=== PATIENT | female | born 1950 | race Caucasian/White ===

== ENCOUNTER 2016-06-23 17:01 | Emergency (ER) | payer BC, OTHER ==
[2016-06-23 17:33] VITALS: BP 133/81
[2016-06-23] MEDS ORDERED: Ipratropium 0.5MG/2.5ML NEB* 0.5 MG/2.5 ML NEB.SOLN INH ONE (17:54)
[2016-06-23] MEDS ORDERED: Albuterol 2.5 MG/3 ML NEB.SOL* (0.083%) INH ONE (17:54)
--- NOTE | 2016-06-23 21:55 | UC ---
Clay Varner Anna, scribed for Carmelina Smith DO on 06/23/16 at 1738 . HPI Febrile Illness - HPI Summary HPI Summary: Patient is a 66 y/o female coming to [facility] [place] presenting with an intermittent cough that began ten days ago. The patient additionally reports sinus pain and pressure, fever, body aches, sore throat, headache, and nausea. The patient describes the cough as productive and producing a yellowish green discharge. She has not noted any blood. Because of her sore throat, it hurts to swallow, but she reports that she is able to swallow sufficiently. The symptoms have made it difficult for her to sleep adequately. She denies vomiting, rashes, dysuria, changes in urination, and chest pain. She has tried Daytime Cold and Flu, Mucinex, and Nyquil with minimal relief. The patient does not smoke. - History of Current Complaint Hx Obtained From: Patient Onset/Duration: Started Days Ago - 10, Still Present, Worse Since - last few days Timing: Constant, Lasting Weeks Initial Severity: Moderate Current Severity: Moderate Alleviating Factors: Nothing Associated Signs and Symptoms: Cough, Myalgia, Nausea, Sore Throat - Additional Pertinent History Primary Care Physician: ANALI - Allergy/Home Medications Allergies/Adverse Reactions: Allergies Allergy/AdvReac Type Severity Reaction Status Date / Time Tetracycline Allergy Rash Verified 06/23/16 17:32 Morphine AdvReac Altered Verified 06/23/16 17:32 Mental Status PMH/Surg Hx/FS Hx/Imm Hx Previously Healthy: Yes Cardiovascular History: Denies: Hx Hypertension GI History: Reports: Hx Gastroesophageal Reflux Disease Musculoskeletal History: Reports: Hx Back Problems Sensory History: Reports: Hx Contacts or Glasses Opthamlomology History: Reports: Hx Contacts or Glasses Neurological History: Reports: Hx Headaches Psychiatric History: Reports: Hx Depression - Cancer History Hx Chemotherapy: No Hx Radiation Therapy: No - Surgical History Surgery Procedure, Year, and Place: 2 C-SECTIONS Hx Anesthesia Reactions: No - Immunization History Date of Tetanus Vaccine: unknown Infectious Disease History: No Infectious Disease History: Denies: Hx Shingles, Traveled Outside the [place] in Last 30 Days - Family History Known Family History: Positive: Cardiac Disease, Hypertension, Other - FHx Breast CA in aunt and grandmother, FHx polymyositis in father - Social History Occupation: Retired Lives: With Family Alcohol Use: Rare Substance Use Type: Reports: None Smoking Status (MU): Never Smoked Tobacco Review of Systems Constitutional: Fever Skin: Negative Eyes: Negative ENT: Sore Throat, Other - Sinus pain and pressure Respiratory: Cough Cardiovascular: Negative Gastrointestinal: Other - nausea Genitourinary: Negative Motor: Negative Neurovascular: Negative Musculoskeletal: Myalgia - body aches Neurological: Headache Psychological: Negative All Other Systems Reviewed And Are Negative: Yes Physical Exam Triage Information Reviewed: Yes Appearance: Well-Appearing, No Pain Distress, Well-Nourished Vital Signs: Initial Vital Signs Temp 98.5 F 06/23/16 17:29 Pulse 93 06/23/16 17:29 Resp 20 06/23/16 17:29 BP 133/81 06/23/16 17:29 Pulse Ox 96 06/23/16 17:29 Vital Signs Reviewed: Yes ENT: Positive: Hearing grossly normal, Pharyngeal erythema, TMs normal, Other: - exquisite sinus tenderness. Negative: Tonsillar swelling, Tonsillar exudate, Trismus, Muffled/hoarse voice Neck: Positive: Supple, Nontender Respiratory: Positive: Wheezing - Diffuse wheezing all duran Cardiovascular: Positive: RRR, No Murmur Musculoskeletal Exam: Normal Neurological: Positive: Alert, Muscle Tone Normal Psychological Exam: Normal Psychological: Positive: Age Appropriate Behavior Skin Exam: Normal - warm, dry, normal color Re-Evaluation - Re-Evaluation First Eval Re-Evaluation Time: 18:40 Change: Improved - Pt reports she is improved following breathing treatment. Only scattered wheezes remain. Course/Dx - Diagnoses Clinic Provider Diagnoses: sinusitis, bronchospasm Discharge - Discharge Plan Condition: Stable Disposition: HOME Prescriptions: Albuterol HFA INHALER* [Ventolin HFA Inhaler*] 2 puff INH Q4H PRN #1 mdi PRN Reason: Sob/Wheezing Amoxicillin/Clavulanate TAB* [Augmentin TAB 875*] 875 mg PO BID #20 tab Benzonatate CAP* [Tessalon CAP*] 100 mg PO TID #30 cap guaiFENesin/CODIEN 100MG-10MG* [Robitussin AC 100Mg-10Mg*] 5 - 10 ml PO BEDTIME PRN #100 udc MDD 10ml PRN Reason: Cough predniSONE TAB* [Deltasone TAB*] 40 mg PO DAILY #10 tab Patient Education Materials: Sinusitis (ED), Bronchospasm (ED) Referrals: Sergio THOMPSON,Cara Prather [Primary Care Provider] - (FOLLOW UP IN 3-5 DAYS IF NOT IMPROVING) Additional Instructions: TRY USING THE NETTI POT IN THE MORNINGS DISCUSSED. YOU MUST ALWAYS USE CLEAN WATER. REMEMBER, POSTURE IS AN IMPORTANT FACTOR IN SINUS DRAINAGE. MOVE YOUR NECK, BREATHE. INHALED BRONCHODILATORS: You have received a prescription for an inhaled bronchodilator -- a medication which stimulates the airways in the lung to dilate. This improves the flow of air in asthma, bronchitis, and emphysema. These medicines have some similarity to adrenaline, and can cause similar side effects: shakiness, racing heart, and a sense of nervousness. These side effects decrease with time. Contact your doctor if these side effects are severe. Do not over-use the medicine. Too-frequent use of the inhaler may make it ineffective. Call your doctor if the inhaler is not controlling your symptoms at the prescribed doses. COUGH-SUPPRESSANT & EXPECTORANT MEDICATION: You are to use a cough medication as needed for relief of symptoms. This medicine is a combination of an expectorant (to make the mucous thinner and more easily "coughed up") and a cough suppressant (to reduce the frequency of coughing). The cough-suppressant medicine is related to narcotics. You may experience mild nausea and sleepiness. Some patients who are very sensitive to narcotics may have stomach pain from this medicine. Taking the medicine with food reduces these side effects. Do not drive or work with machinery until you know how this medicine affects you. The expectorant should have no side effects. Iodine-containing expectorants (such as organidin) should not be taken by persons with active thyroid disease unless approved by your doctor. Call the doctor if you develop shortness of breath, hives, rash, itching, lightheadedness, or severe nausea and vomiting. EXPECTORANT MEDICATION: An expectorant medicine has been prescribed. This type of drug makes mucous thinner, helping the sinuses, nose, and bronchial tubes to remain free of pus and mucous. Expectorants make a cough less severe and more comfortable, and help infected sinuses drain. In general, antihistamines defeat the purpose of the expectorant by making mucous thicker. They should be avoided unless specifically recommended by your physician. TESSALON PERLES: You have received a prescription for Tessalon Perles (benzonatate). This is a non-narcotic medicine for relief of cough. It usually works in about 15- 20 minutes and lasts around four hours. Tessalon Perles should be swallowed. They should not be chewed or dissolved in the mouth (this can produce temporary numbing of the mouth and choking can occur). If you develop any adverse effects such as wheezing, shortness of breath, hives, rash, itching, or lightheadedness, please return at once. CORTICOSTEROID MEDICATION: You have been given a medicine of the cortisone class. This medication is used to control inflammation or allergy. It is usually only given for a short period of time, until the acute process subsides. There are usually no side effects from short-term use of cortisone-like medications. Some persons feel an increased sense of well-being and are not sleepy at bedtime. Long-term use of cortisone medications is best avoided, unless required for a severe condition. If your condition does not remit, or relapses after the course of corticosteroid medication, you should consult your physician. Contact the physician if you develop lightheadedness, black or tarry stools , swelling of the legs, or significant rapid change in weight. AUGMENTIN: Augmentin is a mixture of amoxicillin and clavulanate. Amoxicillin is a member of the penicillin family. It covers the germs likely to cause ear, bronchial, and urinary infections better than plain penicillin. The addition of clavulanate allows it to cover staph infections of the skin, as well as resistant cases of ear and sinus infections. Your physician has chosen Augmentin for you because of the special nature of your situation. Augmentin is best taken with meals. Nausea after taking the medication is rare, but can occur. Diarrhea can occur, particularly in small children. Vaginal yeast infections, and oral thrush in infants are also common. Contact your physician if these problems occur. Allergy to penicillins is common. If you have had an allergic reaction to any drug of the penicillin family, you should never take any other penicillin. Notify your doctor at once if you develop hives, shortness of breath, swelling, or faintness. ANY TIME YOU TAKE AN ANTIBIOTIC, IT IS IMPORTANT TO REPLENISH THE BODY'S BALANCE OF "GOOD" BACTERIA BY EATING HIGH QUALITY CULTURED FOOD SUCH YOGURT, SAURKRAUT OR LAINEY CHI AND/OR TAKING A PROBIOTIC SUPPLEMENT. The documentation as recorded by the graceibClay birmingham Anna accurately reflects the service I personally performed and the decisions made by , Carmelina Smith DO.
== END 2016-06-23 18:56 | disposition home or self-care (01) ==
LOC: UCEAST 17:01
DX: J32.9 Chronic sinusitis, unspecified (principal); J98.01 Acute bronchospasm; Z88.6 Allergy status to analgesic agent; Z88.1 Allergy status to other antibiotic agents
CPT/HCPCS: 99212; G0463; J7644

== ENCOUNTER 2016-08-10 19:34 | Emergency (ER) | payer MEDICARE, BC ==
[2016-08-10 19:55] VITALS: BP 113/72
--- NOTE | 2016-08-10 21:32 | RAD ---
Indication: Fall. Laceration with hematoma to LEFT side of chin. Hit back of head. Comparison: April 08, 2005 CT Technique: Noncontrast CT vertex of skull through foramen magnum. Report: Mild prominence of the cerebral sulci and cerebellar fissures. Unremarkable ventricles and basal cisterns. Negative for campbell matter white matter obscuration, intra or extra-axial hemorrhage, or mass effect. Mild RIGHT posterior parietal scalp hematoma measuring up to 3.8 cm transverse by 0.6 cm in thickness. Negative for calvarial or skull base fracture. Clear visualized paranasal sinuses and mastoid air spaces. IMPRESSION: 1. Mild RIGHT posterior parietal scalp hematoma. 2. Negative for fracture or traumatic brain injury. 3. Mild involutional change.
[2016-08-10] MEDS ORDERED: Lidocaine 1% MPF* 2 ML VIAL ONE (21:35)
--- NOTE | 2016-08-10 21:37 | RAD ---
INDICATION: Fell and struck back of head. Laceration with hematoma to LEFT side of chin. COMPARISON: Head CT of the same date. TECHNIQUE: Multidetector CT base of the skull through mandible without contrast. Multiplanar reformation. REPORT: Artifact from dental amalgam. Mild infiltrative edema/hematoma at the LEFT inferior anterolateral chin. No subcutaneous emphysema evident. The orbital and maxillary sinus margins, zygomatic arches, lamina papyracea, base of the maxilla, pterygoid plates, and nasal bones are intact. The mandible is intact. Normal temporal mandibular joint alignment. Unremarkable orbital contents. Clear paranasal sinuses. Leftward deviation of the nasal septum. IMPRESSION: Mild infiltrative edema/hematoma at the LEFT inferior anterolateral chin. Negative for fracture.
[2016-08-10] MEDS ORDERED: Tetan/Diph/Pertus SYR(Tdap)* 0.5 ML SYR(BOOSTRIX) use SYR IM ONE (21:43)
--- NOTE | 2016-09-03 19:37 | UC ---
Beti Varner Alok, scribed for Carmelina Smith DO on 08/10/16 at 2046 . Minor Trauma HPI - HPI Summary HPI Summary: 66 y/o female presents to the ED following fall from her porch. Pt states that 10 pieces of sheet rock leaning against the wall fell towards her, pushing her backwards and forcing her to land on the floor of the porch. Pt notes she does not know where on her body was impacted but does note pain in her buttocks, and neck, as well as a headache accompanied by light bleeding on the top of her head. Pt states that her headache has been improving with ice and is currently at a 3/10 in severity. Pt denies any LOC following the impact, nor any dizziness , nausea, balance problems, tinnitus, blurred vision, sensitivity to light, confusion, fatigue, moodiness/sadness/irritability following the event. - History of Current Complaint Chief Complaint: UCHeadInjury Stated Complaint: HEAD,CHIN OTHER INJURIES FRM FALL Hx Obtained From: Patient Hx Last Menstrual Period: n/a ?: No Onset/Duration: Sudden Onset, Lasting Hours, Still Present - Better since arrival Onset Of Pain: Post Accident Severity Initially: Moderate Severity Currently: Moderate Pain Intensity: 3 Pain Scale Used: 0-10 Numeric Mechanism Of Injury: Fall From A Standing Position Aggravating Factor(s): Nothing Alleviating Factor(s): Ice Associated Signs And Symptoms: Positive: Ecchymosis - Buttocks, Other: - Headache. Negative: Loss Of Consciousness - Allergies/Home Medications Allergies/Adverse Reactions: Allergies Allergy/AdvReac Type Severity Reaction Status Date / Time Tetracycline Allergy Rash Verified 08/10/16 19:55 Morphine AdvReac Altered Verified 08/10/16 19:55 Mental Status PMH/Surg Hx/FS Hx/Imm Hx Cardiovascular History Of: Denies: Hypertension GI/ History Of: Reports: Gastroesophageal Reflux Psychological History Of: Reports: Depression Cancer History Of: Denies: Breast Cancer - Surgical History Surgical History: Yes Surgery Procedure, Year, and Place: 2 C-SECTIONS back surgery 2016 for herniated disc. - Family History Known Family History: Positive: Cardiac Disease, Hypertension, Other - FHx Breast CA in aunt and grandmother, FHx polymyositis in father - Social History Occupation: Retired Lives: With Family - Domestic Partner (Male) Alcohol Use: Rare Substance Use Type: None Smoking Status (MU): Never Smoked Tobacco - Immunization History Most Recent Influenza Vaccination: fall 2013 Most Recent Tetanus Shot: more than 10 yrs Most Recent Pneumonia Vaccination: never Review of Systems Constitutional: Negative Skin: Bruising Eyes: Negative ENT: Negative Respiratory: Negative Cardiovascular: Negative Gastrointestinal: Negative Genitourinary: Negative Motor: Negative Neurovascular: Negative Musculoskeletal: Negative Neurological: Negative Psychological: Negative All Other Systems Reviewed And Are Negative: Yes Physical Exam Triage Information Reviewed: Yes Appearance: Well-Appearing, No Pain Distress, Well-Nourished Vital Signs: Initial Vital Signs Temp 98.6 F 08/10/16 19:48 Pulse 85 08/10/16 19:48 Resp 20 08/10/16 19:48 BP 113/72 08/10/16 19:48 Pulse Ox 90 08/10/16 19:48 Vital Signs Reviewed: Yes Eyes: Positive: Conjunctiva Clear. Negative: Discharge ENT: Positive: Hearing grossly normal. Negative: Muffled/hoarse voice Neck exam: Normal Neck: Positive: Supple Respiratory: Positive: Lungs clear, Normal breath sounds, No respiratory distress, No accessory muscle use Cardiovascular: Positive: RRR, No Murmur Musculoskeletal Exam: Normal Neurological: Positive: Other: - A&Ox3, CN II-XII INTACT, SENSORY MOTOR INTACT, REFLEXES INTACT, NO CEREBELLAR SIGNS, FACIAL SYMMETRY, NEGATIVE ROMBERG, NORMAL GAIT Psychological Exam: Normal Psychological: Positive: Age Appropriate Behavior Skin Exam: Normal Skin: Positive: Other - abraision on scalp. no lac appreciated. Warm, dry, normal color Diagnostics - Radiology Brain CT Xray Interpretation: Positive (See Comments) - IMPRESSION: 1. Mild RIGHT posterior parietal scalp hematoma. 2. Negative for fracture or traumatic brain injury. 3. Mild involutional change. Radiology Interpretation Completed By: Radiologist Maxillofacial CT Xray Interpretation: Positive (See Comments) - IMPRESSION: Mild infiltrative edema/hematoma at the LEFT inferior anterolateral chin. Negative for fracture. Radiology Interpretation Completed By: Radiologist Minor Trauma Course/Dx - Differential Dx/Diagnosis Differential Diagnosis/HQI/PQRI: Abrasion(s), Contusion(s), Fracture, Hematoma(s ), Laceration(s), Sprain Provider Diagnoses: concussion, abraision, hematoma Discharge - Discharge Plan Condition: Stable Disposition: HOME Patient Education Materials: Concussion (ED), Abrasion (ED), Hematoma (ED) Referrals: Sergio DORSEYC,Cara Prather [Primary Care Provider] - (follow up in 4-5 days) The documentation as recorded by the Beti guan Alok accurately reflects the service I personally performed and the decisions made by , Carmelina Smith DO.
== END 2016-08-10 22:08 | disposition home or self-care (01) ==
LOC: UCEAST 19:34
DX: S06.0X0A Concussion without loss of consciousness, initial encounter (principal); S00.01XA Abrasion of scalp, initial encounter; S00.03XA Contusion of scalp, initial encounter; S30.0XXA Contusion of lower back and pelvis, initial encounter; S00.83XA Contusion of other part of head, initial encounter; W17.89XA Other fall from one level to another, initial encounter; Y93.9 Activity, unspecified; Y92.9 Unspecified place or not applicable; Z23 Encounter for immunization; Z88.1 Allergy status to other antibiotic agents; Z88.2 Allergy status to sulfonamides
CPT/HCPCS: 70450; 70486; 90471; 90715; 99211; G0463

== ENCOUNTER 2017-01-05 12:55 | Emergency (ER) | payer MEDICARE ==
[2017-01-05 13:06] VITALS: BP 132/68
--- NOTE | 2017-01-05 20:22 | UC ---
Nehemias Varner Rebecca, scribed for Irene Perry MD on 01/05/17 at 1441 . Skin Complaint HPI - HPI Summary HPI Summary: Pt is a 66 y/o F who presents to [facility] c/o bilateral erythematous rash to the upper extremities. Sx began 10 days ago and have been constant and worsening since onset. Rash is characterized as pruritic and "burning" with associated pain ranked 3/10. Sx aggravated and alleviated by nothing, unchanged by hydrocortisone and Prednisone 10 mg BID for 3 days - left over from poison libia last year. Additionally notes RUE swelling. Denies rash on the neck, fever, cough, chills. Reports she was cutting down a vine from a tree recently. PCP is Dr. Pina. Tetanus UTD. - History of Current Complaint Chief Complaint: UCSkin Time Seen by Provider: 01/05/17 14:36 Stated Complaint: RASH Hx Obtained From: Patient Hx Last Menstrual Period: n/a Onset/Duration: Lasting Days - 10 days, Still Present Timing: Constant Current Severity: Mild Pain Intensity: 3 Pain Scale Used: 0-10 Numeric Location: Other - Bilateral UE Character: Redness Aggravating: Nothing Alleviating: Nothing - Allergy/Home Medications Allergies/Adverse Reactions: Allergies Allergy/AdvReac Type Severity Reaction Status Date / Time Tetracycline Allergy Rash Verified 12/06/16 12:38 Morphine AdvReac Altered Verified 12/06/16 12:38 Mental Status Review of Systems Constitutional: Negative Skin: Rash - Erythematous pruritic bilateral UE; Denies rash on the neck, Other - RUE swelling Eyes: Negative ENT: Negative Respiratory: Negative Cardiovascular: Negative Gastrointestinal: Negative Genitourinary: Negative Motor: Negative Neurovascular: Negative Musculoskeletal: Negative Neurological: Negative Psychological: Negative All Other Systems Reviewed And Are Negative: Yes PMH/Surg Hx/FS Hx/Imm Hx Previously Healthy: No - Hx chronic back pain - Surgical History Surgical History: Yes Surgery Procedure, Year, and Place: 2 C-SECTIONS back surgery 2016 for herniated disc. - Family History Known Family History: Positive: Cardiac Disease, Hypertension, Other - FHx Breast CA in aunt and grandmother, FHx polymyositis in father - Social History Alcohol Use: None Substance Use Type: None Smoking Status (MU): Never Smoked Tobacco - Immunization History Most Recent Influenza Vaccination: fall 2013 Most Recent Tetanus Shot: more than 10 yrs Most Recent Pneumonia Vaccination: never Physical Exam Triage Information Reviewed: Yes Vital Signs: Initial Vital Signs Temp 100 F 01/05/17 13:03 Pulse 84 01/05/17 13:03 Resp 20 01/05/17 13:03 BP 132/68 01/05/17 13:03 Pulse Ox 100 01/05/17 13:03 Vital Signs Reviewed: Yes Skin Exam: Other - Bilat forearms with + red, raised patches c/w contact dermatitis. + red, warm to touch. Distal pulses (R/U) 2+ equal. Distal sensation present LT. Moves hand bilat. Straightens elbow ok. PT reports similar rash on legs, to lesser degree. - Additional Comments Appearance: Well-Nourished Eye Exam: Normal ENT Exam: Normal Respiratory Exam: Normal, no dyspnea, no tachypnea, normal respiratory rate Cardiovascular Exam: Normal Cardiovascular: Heart rate regular, good general skin color, good capillary refill Musculoskeletal Exam: Normal Musculoskeletal: Strength Intact Neurological Exam: Normal: nonfocal, grossly intact Psychological Exam: Normal: conversing easily and appropriately Skin Exam: Course/Dx - Course Course Of Treatment: S/sx c/w contact dermatitis. Possibly additional secondary cellulitis. Rx -prednisone taper, d/w pt. Rx - cephalexin, d/w pt. See AVS instr. Questions answered to the best of my ability. Diff dx includes (below). Considered phytophotodermatitis, but more c/w contact such as poison oak. Tet utd per pt. - Diagnoses Provider Diagnoses: Contact dermatitis. Cellulitis Discharge - Discharge Plan Condition: Stable Disposition: HOME Prescriptions: Cephalexin CAP* [Keflex 500 CAP*] 500 mg PO TID #15 cap predniSONE TAB* [Deltasone TAB*] 10 mg PO DAILY #20 tab Patient Education Materials: Antihistamine (By mouth), Contact Dermatitis (ED) , Cellulitis (ED) Referrals: Hanane Pina MD [Primary Care Provider] - Additional Instructions: Avoid strong soaps, rubbing alcohol, hydrogen peroxide and after-shave. Avoid hot showers, beer and red wine. The documentation as recorded by the Nehemias guan Rebecca accurately reflects the service I personally performed and the decisions made by me, Irene Perry MD.
== END 2017-01-05 15:00 | disposition home or self-care (01) ==
LOC: UCEAST 12:55
DX: L25.9 Unspecified contact dermatitis, unspecified cause (principal); L03.114 Cellulitis of left upper limb; L03.113 Cellulitis of right upper limb
CPT/HCPCS: 99211; G0463

== ENCOUNTER 2017-10-14 17:11 | Emergency (ER) | payer MEDICARE, OTHER ==
[2017-10-14 17:19] VITALS: BP 112/59
[2017-10-14] MEDS ORDERED: DOXYcycline CAP(*) 100 MG PO ONE (17:29)
--- NOTE | 2017-10-14 17:37 | UC ---
Bite Injury/Animal HPI - HPI Summary HPI Summary: 67 yo female with c/o tick bite. She removed a tick from the R side of her abdomen yesterday. Unsure how long it had been attached. Not engorged. No recent fevers, ZAFAR, n/v. - History of Current Complaint Chief Complaint: UCSkin Stated Complaint: TICK BITE Hx Last Menstrual Period: n/a Pain Intensity: 2 - Allergies/Home Medications Allergies/Adverse Reactions: Allergies Allergy/AdvReac Type Severity Reaction Status Date / Time morphine Allergy Altered Verified 10/14/17 17:19 Mental Status tetracycline Allergy Rash Verified 10/14/17 17:19 PMH/Surg Hx/FS Hx/Imm Hx Previously Healthy: Yes - Surgical History Surgical History: Yes Surgery Procedure, Year, and Place: 2 C-SECTIONS back surgery 2016 for herniated disc. - Family History Known Family History: Positive: Cardiac Disease, Hypertension, Other - FHx Breast CA in aunt and grandmother, FHx polymyositis in father - Social History Alcohol Use: Rare Substance Use Type: None Smoking Status (MU): Never Smoked Tobacco - Immunization History Most Recent Influenza Vaccination: fall 2013 Most Recent Tetanus Shot: more than 10 yrs Most Recent Pneumonia Vaccination: never Review of Systems Constitutional: Negative Skin: Other - tick bite Eyes: Negative ENT: Negative Respiratory: Negative Cardiovascular: Negative Gastrointestinal: Negative Genitourinary: Negative Motor: Negative Neurovascular: Negative Musculoskeletal: Negative Neurological: Negative Psychological: Negative Is Patient Immunocompromised?: No All Other Systems Reviewed And Are Negative: Yes Physical Exam Triage Information Reviewed: Yes Appearance: Well-Appearing Vital Signs: Initial Vital Signs Temp 98.2 F 10/14/17 17:16 Pulse 80 10/14/17 17:16 Resp 18 10/14/17 17:16 BP 112/59 10/14/17 17:16 Pulse Ox 99 10/14/17 17:16 Vital Signs Reviewed: Yes ENT Exam: Normal Neck exam: Normal Respiratory Exam: Normal Cardiovascular Exam: Normal Abdominal Exam: Normal Musculoskeletal Exam: Normal Neurological Exam: Normal Psychological Exam: Normal Skin: Positive: Other - focal area of erythema over R hip c/w recent tick bite Bite Injury Course/Dx - Course Course Of Treatment: 67 yo female with recent tick bite. Reviewed indications for doxycycline prophylaxis. Patient has listed allergy to tetracycline, reaction is a rash. Patient would like to receive doxycycline despite rash to tetracycline. Reviewed s/sxs of Lyme disease. - Differential Dx/Diagnosis Differential Diagnosis/HQI/PQRI: Cellulitis, Puncture, Other - Lyme disease Provider Diagnoses: Tick bite Discharge - Sign-Out/Discharge Documenting (check all that apply): Discharge/Admit/Transfer - Discharge Plan Condition: Stable Disposition: HOME Patient Education Materials: Lyme Disease (ED), Tick Bite (ED) Referrals: Hanane Pina MD [Primary Care Provider] - If Needed Additional Instructions: Monitor for signs and symptoms of Lyme disease - Billing Disposition and Condition Condition: STABLE Disposition: HOME
== END 2017-10-14 17:38 | disposition home or self-care (01) ==
LOC: UCEAST 17:11
DX: S30.861A Insect bite (nonvenomous) of abdominal wall, initial encounter (principal); W57.XXXA Bitten or stung by nonvenomous insect and other nonvenomous arthropods, initial encounter; Y93.9 Activity, unspecified; Y92.9 Unspecified place or not applicable; Z88.1 Allergy status to other antibiotic agents; Z88.5 Allergy status to narcotic agent
CPT/HCPCS: 99212; A9270-GY; G0463

== ENCOUNTER 2017-12-03 17:16 | Emergency (ER) | payer MEDICARE ==
[2017-12-03 17:23] VITALS: BP 128/57
--- OUTSIDE RECORDS SUMMARY | 2017-12-03 17:23 | XMS REPORT ---
:1950 External Reference #:[id number] Author Organization [facility] Address [address] [place] [address] Phone [phone] Care Team Providers Name Role Phone Hanane Pina M.D. Primary Care Physician Unavailable Payers Type Date Identification Numbers Payment Provider Subscriber Commercial Policy Number: [id number] BS [employer] Oziel Butcher PayID: [id number] [address] [address] [place] [address] Problems Date Description Provider Status Onset: Chronic back pain Active Onset: Gastroesophageal reflux disease Active Onset: 11/14/2017 Regular astigmatism Jinny Red O.D. Active Onset: 11/14/2017 Hypermetropia Jinny Red O.D. Active Onset: 11/14/2017 Nuclear senile cataract Jinny Red O.D. Active Family History Date Family Member(s) Problem(s) Comments Father No Current Problems Mother No Current Problems Social History Type Date Description Comments Marital Status Single Occupation Nurse Work Status Retired ETOH Use Rarely consumes alcohol Smoking Patient has never smoked Daily Caffeine Consumes on average 2 cups of regular coffee per day Allergies, Adverse Reactions, Alerts Date Description Reaction Status Severity Comments 11/14/2017 Tetracycline active Medications Medication Date Status Form Strength Qnty SIG Indications Ordering Provider Prilosec Active Capsules DR 40mg 1 by Unknown 000 mouth twice a day Oxycodone HCL Active Tablets 10mg 180tab 3-4 Unknown 000 s times a day Methocarbamol Active Tablets 500mg Unknown 000 Multi Vitamin Active Tablets Unknown Daily 000 Magnesium Active Capsules 300mg Unknown 000 Melatonin ER Active Tablets ER 3mg 1/2 by Unknown 000 mouth every day Results Description No Information Procedures Date CPT Code Description Status 09/06/2007 97489 Determination Of Refractive State Completed 09/06/2007 62764 Est Patient Comprehensive Exam Completed 07/18/2006 30611 Determination Of Refractive State Completed 07/18/2006 51888 Est Patient Comprehensive Exam Completed 04/25/2005 41417 Determination Of Refractive State Completed 04/25/2005 33590 Est Patient Comprehensive Exam Completed Plan of Care 11/14/2017 - Jinny Red O.D.H25.13 Age-related nuclear cataract, bilateralComments:You have nuclear sclerosis, which is hardening of your natural lens. This is normal as a person ages.Follow up:1-2 MRGGVF95.03 Hypermetropia, bilateralComments:You have Hyperopia, or far sightedness, I have given you a prescription for glasses.H52.223 Regular astigmatism, bilateralComments:Smoking can increase the risk of developing or worsening any eye related disease, as well as affect your overall health. If you are a smoker , we strongly recommend that you quit.If you are not a smoker, we strongly recommend that you do not start. Astigmatism is a common vision condition that happens when a person's cornea is not symmetrical. Dr. Red has given you a prescription to correct for this.
--- NOTE | 2017-12-03 17:43 | UC ---
Complaint Female HPI - HPI Summary HPI Summary: Urinary pressure and burning starting a few hours ago. Hx of UTIs, this feels like prior infections - History Of Current Complaint Chief Complaint: UCGU Stated Complaint: BURNING URINATION Time Seen by Provider: 12/03/17 17:40 Hx Obtained From: Patient Hx Last Menstrual Period: n/a ?: No Onset/Duration: Sudden Onset, Still Present Timing: Constant Severity Initially: Moderate Severity Currently: Moderate Pain Intensity: 3 Character: Burning Aggravating Factor(s): Urination Associated Signs And Symptoms: Positive: Negative - Allergies/Home Medications Allergies/Adverse Reactions: Allergies Allergy/AdvReac Type Severity Reaction Status Date / Time morphine Allergy Altered Verified 12/03/17 17:24 Mental Status tetracycline Allergy Rash Verified 12/03/17 17:24 PMH/Surg Hx/FS Hx/Imm Hx - Additional Past Medical History Additional PMH: chronic pain GI/ History: Gastroesophageal Reflux - Surgical History Surgical History: Yes Surgery Procedure, Year, and Place: 2 C-SECTIONS back surgery 2016 for herniated disc. - Family History Known Family History: Positive: Cardiac Disease, Hypertension, Other - FHx Breast CA in aunt and grandmother, FHx polymyositis in father - Social History Alcohol Use: None Substance Use Type: Prescribed Substance Use Comment - Amount & Last Used: oxycodone Smoking Status (MU): Never Smoked Tobacco - Immunization History Most Recent Influenza Vaccination: fall 2013 Most Recent Tetanus Shot: more than 10 yrs Most Recent Pneumonia Vaccination: never Review of Systems Constitutional: Negative Skin: Negative Eyes: Negative ENT: Negative Respiratory: Negative Cardiovascular: Negative Gastrointestinal: Negative Genitourinary: Dysuria, Frequency, Urgency Motor: Negative Neurovascular: Negative Musculoskeletal: Negative Neurological: Negative Psychological: Negative Is Patient Immunocompromised?: No All Other Systems Reviewed And Are Negative: Yes Physical Exam Triage Information Reviewed: Yes Appearance: Well-Appearing, No Pain Distress, Well-Nourished Vital Signs: Initial Vital Signs Temp 96.8 F 12/03/17 17:21 Pulse 72 12/03/17 17:21 Resp 12 12/03/17 17:21 BP 128/57 12/03/17 17:21 Pulse Ox 98 12/03/17 17:21 Vital Signs Reviewed: Yes Eye Exam: Normal Eyes: Positive: Conjunctiva Clear ENT Exam: Normal ENT: Positive: Normal ENT inspection, Hearing grossly normal, Pharynx normal, TMs normal Neck exam: Normal Neck: Positive: Supple, Nontender, No Lymphadenopathy Respiratory Exam: Normal Respiratory: Positive: Chest non-tender, Lungs clear, Normal breath sounds, No respiratory distress, No accessory muscle use Cardiovascular Exam: Normal Cardiovascular: Positive: RRR, No Murmur Musculoskeletal Exam: Normal Neurological Exam: Normal Neurological: Positive: Alert Psychological Exam: Normal Skin Exam: Normal Complaint Female Dx - Differential Dx/Diagnosis Provider Diagnoses: UTI Discharge - Sign-Out/Discharge Documenting (check all that apply): Discharge/Admit/Transfer - Discharge Plan Condition: Stable Disposition: HOME Referrals: Hanane Pina MD [Primary Care Provider] - 2 Days - Billing Disposition and Condition Condition: STABLE Disposition: Home
--- NOTE | 2017-12-05 16:50 | UC ---
- Progress Note Progress Note: please call patient advise that she does not have a UTI and should symptoms be continuing to follow with pcp or return as needed Discharge - Sign-Out/Discharge Documenting (check all that apply): Post-Discharge Follow Up - Discharge Plan Condition: Stable Disposition: HOME Prescriptions: Nitrofurantoin Macrocrystals* [Macrodantin 100 mg*] 100 mg PO BID #10 cap Phenazopyridine 200 mg (NF) [Pyridium 200 MG tab *] 200 mg PO TID PRN #6 tab MDD 3 PRN Reason: pain Patient Education Materials: Urinary Tract Infection in Women (ED) Referrals: Hanane Pina MD [Primary Care Provider] - 2 Days Additional Instructions: If you do not see clear improvement in the next 48 hours please follow up with your primary care providers. - Billing Disposition and Condition Condition: STABLE Disposition: Home
== END 2017-12-03 17:59 | disposition home or self-care (01) ==
LOC: UCEAST 17:16
DX: N39.0 Urinary tract infection, site not specified (principal); Z87.440 Personal history of urinary (tract) infections; K21.9 Gastro-esophageal reflux disease without esophagitis; Z88.1 Allergy status to other antibiotic agents; Z88.5 Allergy status to narcotic agent; Z82.49 Family history of ischemic heart disease and other diseases of the circulatory system; Z80.3 Family history of malignant neoplasm of breast; Z82.69 Family history of other diseases of the musculoskeletal system and connective tissue
CPT/HCPCS: 81003; 87086; 99212; G0463